=== PATIENT | female | born 1990 | race Caucasian/White ===

== ENCOUNTER → 2016-05-21 | Outpatient (CLI) | payer OTHER ==
[2016-05-21 16:42] LABS: HEMATOCRIT 40.8 % (37.0-47.0); MEAN CORPUSCULAR HEMOGLOBIN 30.2 PG (27-31); MEAN CORPUSCULAR HGB CONC 34.3 g/dL (33-37); MEAN CORPUSCULAR VOLUME 88.1 FL (81-99); MEAN PLATELET VOLUME 10.2 FL (7.4-12.2); RED BLOOD COUNT 4.63 10^6/uL (4.20-5.40)
[2016-05-21 16:58] LABS: BLOOD UREA NITROGEN 15 mg/dL (7-22); BUN/CREATININE RATIO 21.42 (6-20); CALCIUM 9.6 mg/dL (8.7-10.7); EST GLOMERULAR FILTRATION > 60 (>60 ml/min/1.73m(2)); SERUM ALBUMIN 4.3 g/dL (3.5-4.8)
[2016-05-21 17:16] LABS: FREE T4 (FREE THYROXINE) 0.97 ng/dL (0.93-1.71)
== END ==
LOC: MOB LAB 15:01
PROVIDERS: ATTEND Nurse Practitioner Family
DX: R51 Headache (principal); F17.210 Nicotine dependence, cigarettes, uncomplicated
CPT/HCPCS: 80053; 82607; 82728; 83540; 83550; 84439; 84443; 85027

== ENCOUNTER → 2016-05-27 | Outpatient (CLI) | payer OTHER ==
--- NOTE | 2016-05-28 09:11 | DI ---
MRI BRAIN SCAN WITHOUT AND WITH IV CONTRAST, 05/27/2016 2:31 PM: Clinical History: Acute non-intractable headache. Previous Exam: None at this facility. Sequences: Axial and sagittal T1 pre contrast and axial and coronal post contrast; axial T2 and FLAIR . Diffusion weighted images with ADC mapping are also performed. 12 mL of ProHance (279.3 mg/mL) was injected IV. The 4th, 3rd, and lateral ventricles are of normal size, shape, position, and contour for this patien t's age. There are no focal areas of abnormally increased or decreased signal intensity. There are no abnormally enhancing lesions. Both cerebellar tonsils are right at the level of foramen magnum but d o not descend below the foramen magnum. Diffusion weighted imaging with ADC mapping is normal. There are no extracerebral mantels or shift of the midline structures. The paranasal sinuses are normal. Readin. Normal pre-and postcontrast MRI brain scan. 2. Diffusion weighted imaging with ADC mapping is normal.
== END ==
LOC: MRI 14:27
PROVIDERS: ATTEND Nurse Practitioner Family
DX: R51 Headache (principal)
CPT/HCPCS: 70553

== ENCOUNTER → 2016-06-23 | Outpatient (CLI) | payer OTHER ==
--- NOTE | 2016-06-23 21:21 | DI ---
XR C-SPINE COMPLETE MIN 4VW,06/23/2016 2:58 PM: Clinical History: Headache Previous Exam: None at this facility. Findings: AP, lateral, oblique and odontoid views are obtained of the cervical spine, and demonstrate anatomic alignment without fractures. The prevertebral soft tissues are unremarkable. Vertebral body height is preserved. Intervertebral disc height is also preserved. The lung apices are clear. Impression: Normal cervical spine.
== END ==
LOC: MOB RAD 15:05
PROVIDERS: ATTEND Nurse Practitioner Family
DX: R51 Headache (principal); M54.2 Cervicalgia
CPT/HCPCS: 72050

== ENCOUNTER → 2016-08-05 | Outpatient (CLI) | payer OTHER ==
--- NOTE | 2016-08-06 09:19 | DI ---
US PELVIC LIMITED (NON-OB),08/05/2016 4:45 PM: Clinical History: Pelvic pain Previous Exam: Early OB ultrasound from 2008 Findings: Multiple transabdominal grayscale and color Doppler sonographic images are obtained through the pelvi s demonstrating a normal-appearing uterus measuring 7.8 x 3.7 x 5.4 cm with an endometrial stripe killian suring 7 mm. There is no free fluid. The urinary bladder is unremarkable. Right ovary measures 2.6 x 1.8 x 2.8 cm and the left ovary measures 2.7 x 2.3 x 1.6 cm. There is norm al Doppler flow within both ovaries. Impression: Normal pelvic ultrasound.
== END ==
LOC: US 16:44
PROVIDERS: ATTEND Nurse Practitioner Family
DX: R10.2 Pelvic and perineal pain (principal); N73.0 Acute parametritis and pelvic cellulitis; N92.6 Irregular menstruation, unspecified; N94.9 Unspecified condition associated with female genital organs and menstrual cycle; F17.200 Nicotine dependence, unspecified, uncomplicated
CPT/HCPCS: 76857

== ENCOUNTER 2017-03-30 14:14 | Inpatient (IN) ==
[2017-03-30] MEDS ORDERED: Sodium Chloride 0.9% 1,000 ML PRIMARY IV ONE (15:05)
[2017-03-30 16:38] LABS: BILIRUBIN,URINE NEGATIVE (NEG); CLARITY,URINE Slightly Cloudy (CLEAR); COLOR,URINE YELLOW; GLUCOSE, URINE (UA) NEGATIVE (NEG); OCCULT BLOOD,URINE LARGE (NEG); PROTEIN,URINE 30 mg/dl (NEG); UROBILINOGEN,URINE 0.2 mg/dL (0.2)
[2017-03-30 16:42] LABS: BACTERIA,URINE FEW; SQUAMOUS EPITHELIAL CELL,UR MODERATE; URINE SAMPLE TYPE CLEAN CATCH URINE; WBC,URINE 0-1
[2017-03-30 16:49] LABS: AMPHETAMINE SCREEN NEGATIVE (NEG); CANNABINOID SCREEN,URINE NEGATIVE (NEG); COCAINE SCREEN NEGATIVE (NEG); METHADONE URINE SCREEN NEGATIVE (NEG); METHAMPHETAMINES SCREEN,URINE NEGATIVE (NEG); OPIATE SCREEN,URINE NEGATIVE (NEG); URINE SAMPLE TYPE CLEAN CATCH URINE
[2017-03-30] MEDS ORDERED: LIDOCAINE W/ SODIUM BICARB 0.5 ML SYR SUBD PRN (16:51)
[2017-03-30] MEDS ORDERED: Ondansetron ODT Tab 4 MG TAB PO PRN (16:51)
[2017-03-30] MEDS ORDERED: ONDANSETRON 4 MG/2 ML VIAL IVP PRN (16:51)
[2017-03-30] MEDS ORDERED: CALCIUM CARBONATE 500 MG (TUMS) CHEWABLE TABLET PO PRN (16:51)
[2017-03-30] MEDS ORDERED: NORMAL SALINE 10 ML SYRINGE FLUSH IVP PRN (16:51)
[2017-03-30] MEDS ORDERED: ACETAMINOPHEN 325 MG TABLET PO PRN (16:51)
[2017-03-30] MEDS ORDERED: BETAMET ACET/BETAMET NA PH 6 MG/1 ML - 5 ML IM SCH (17:00)
--- NOTE | 2017-03-30 17:04 | OB.PROGRES ---
Interval History: The patient is a 26-year-old at 33-4/7 weeks who presented to labor and delivery this afternoon after awakening from a nap and having dark blood from her vagina when she voided. The patient was not sure if the blood came from her urine or from her vagina. The patient has had intermittent left lower quadrant pain for which she was seen last week and had a normal OB and pelvic ultrasound with normal left ovary. The patient has an anterior placenta without evidence of abruption. In labor and delivery today, the patient was noted to have dark blood in her urine specimen and this was thought to be a midstream clean catch. The patient had an ultrasound of her ureters and kidneys which showed mild ureteral dilation but no stone noted and good ureteral jets noted bilaterally. Patient states that she does not have cramping pain. She does have some lower back discomfort which she has had for a few weeks. The patient states that she has not been active recently since it was suggested that she take it easy. She has not even lifted her son. The patient has not been sexually active recently. Again, the patient awoke from her nap and was noted to have dark blood when she went to the restroom to avoid. Below is my initial history when I saw the patient at the beginning of this . The patient does have a history of a vaginal delivery and then a section for a presumed partial placental abruption at 39+ weeks. The patient is Rh+. The patient is a 26-year-old at 13-5/7 weeks by an 11+ week ultrasound who presents for transfer of care for her OB care. The patient was seen in the emergency room a few days ago for bleeding. The bleeding is much improved and only has a slight discharge 1 white currently. An ultrasound was completed on 09 November and did show an IUP with cardiac activity. The patient does not have any pain. Patient has a history of a last which I performed for presumed partial abruption at 39+ weeks. That baby is doing well. Prior to that, patient had a vaginal delivery. Past medical history noncontributory Past surgical history significant for a D&C and then a perforation noted and then a laparoscopic repair of the perforation. Also the No known drug allergies Tobacco 5-7 cigarettes per day. Patient does desire to quit by the end of her , no alcohol, no drugs Menarche age 13, no abnormal Pap smear history with the last Pap smear last year And no drugs OB history vaginal delivery x1 and then a section for bleeding. Objective - Cervical Exam Cervical Exam: Speculum exam showed some dark blood at the cervix. Dark blood in the vagina. Cervix was visualized and not friable. Digital cervical exam shows the cervix was a fingertip and thick. Moderate consistency [place]: Rare contractions. Questionable mild occasional irritability. No regular contractions. Heart Rate Interpretation Category: Category I - Vital Signs Last Taken Vital Signs: Vital Signs - Last Taken Temperature 97.5 F 03/30/17 14:21 Pulse Rate 100 03/30/17 14:21 Respiratory Rate 18 03/30/17 14:21 Blood Pressure 127/77 03/30/17 14:50 Pulse Ox 99 03/30/17 14:21 - Additional Details Additional Details: Lungs clear to auscultation Heart regular rate and rhythm Abdomen was gravid and soft and nontender without guarding or rebound. Slight tenderness left lower quadrant. Speculum exam discussed above. Reflexes were 2+ bilaterally Radiology performed an ultrasound. Anterior placenta, baby in cephalic presentation. HIGINIO was 15+ centimeters. No evidence of placental abruption by ultrasound. Good movement and flexion and extension of fetus. Nonstress test was category 1 and reactive. Ultrasound of the patient's kidneys and ureters did not show significant pathology. Mild ureteral dilation. No stone. Ureteral jets noted bilaterally with good flow into the bladder from the ureters. Formal report is pending. Assessment and Plan - Assessment / Plan Additional Assessment/Plan Details: Assessment: IUP 33-4/7 weeks with vaginal bleeding-dark blood. Initially it was thought that the patient had blood in her urine with a midstream clean catch but then it was discovered that the patient did not complete a midstream clean catch. UA with micro-is pending. The patient does have an anterior placenta and may have a partial abruption. Patient is Rh+. Patient has been seen in labor and delivery a couple different times. She had pain after shoveling Snow. Last week she had left lower quadrant discomfort and ultrasound was normal and exam was normal. Patient was sent home with precautions. Plan: I will admit the patient for observation Betamethasone 12 mg IM today and repeat in 24 hours IV fluids at 125 mL per hour UA with micro-pending. Culture if indicated. Clear liquids initially. External monitoring If the patient has more bleeding, I would consider transferring the patient to [facility] since we do not have a NICU here. Currently transfer is not possible secondary to the weather-it has been snowing here all day and we have about 12 inches of Snow. Of note, the fetus looks good and the patient's cervix is a fingertip and currently she is not actively bleeding. I will check a CBC, CMP and a type and screen. SCDs Close observation.
[2017-03-30] MEDS: Lactated Ringers 1,000 ML PRIMARY IV SCH (17:07)
--- NOTE | 2017-03-30 17:26 | OB.PROGRES ---
Objective - Vital Signs Last Taken Vital Signs: Vital Signs - Last Taken Temperature 97.5 F 03/30/17 14:21 Pulse Rate 100 03/30/17 14:21 Respiratory Rate 18 03/30/17 14:21 Blood Pressure 127/77 03/30/17 14:50 Pulse Ox 99 03/30/17 14:21 Assessment and Plan - Assessment / Plan Additional Assessment/Plan Details: I just spoke with the patient now. She is having some abdominal discomfort intermittently. There have perhaps been some inverted contractions on the monitor and the toco will be adjusted. I discussed the betamethasone to help improve lung maturity but also help decrease the rate of interventricular hemorrhage and decrease her rate of necrotizing enterocolitis. The patient and I did discuss that sometimes patient 's have a hard time sleeping after they received betamethasone. Patient expressed understanding and agreed. The patient also questioned if some of her abdominal discomfort is because she is hungry and only had cereal for breakfast. Currently, I would like to have the patient on clear liquids but if she is doing better later, she may have regular diet. We also discussed transferred to [facility] if her symptoms worsen or if her bleeding continues. Patient expressed understanding with that plan. If the patient does have contractions on the monitor, I could try nifedipine 10 mg 3 doses for a load then 10 mg every 4-6 hours. Of course, if the patient does have a partial placental abruption, sometimes the nifedipine will not help with this. The patient expressed understanding with the above plan.
[2017-03-30 18:23] LABS: BASOPHILS # (AUTO) 0.02 10*3/UL; BASOPHILS % (AUTO) 0.2 % (0-1); Hematocrit [HCT] 36.1 % (37.0-47.0); Hemoglobin [HGB] 12.6 g/dL (12.0-16.0); LYMPHOCYTES # (AUTO) 2.23 10*3/uL; MEAN CORPUSCULAR HEMOGLOBIN 32.2 PG (27-31); MEAN CORPUSCULAR HGB CONC 34.9 g/dL (33-37); MEAN CORPUSCULAR VOLUME 92.3 FL (81-99); MEAN PLATELET VOLUME 9.2 FL (7.4-12.2); MONOCYTES % (AUTO) 7.2 % (5-15); NEUTROPHILS # (AUTO) 6.52 10*3/UL; NEUTROPHILS % (AUTO) 67.4 % (50-80); RED BLOOD COUNT 3.91 10^6/uL (4.20-5.40)
[2017-03-30 18:25] LABS: PLATELET MORPHOLOGY COMMENT NORMAL MORPHOLOGY (NORM); RBC MORPHOLOGY COMMENT NORMAL MORPHOLOGY (NORM); WBC MORPHOLOGY COMMENT NORMAL MORPHOLOGY (NORM)
[2017-03-30 18:33] LABS: BLOOD UREA NITROGEN 5 mg/dL (7-22); SERUM ALBUMIN 3.3 g/dL (3.5-4.8)
--- NOTE | 2017-03-30 20:13 | DI ---
LIMITED OBSTETRICAL ULTRASOUND, 03/30/2017 2:37 PM Clinical History: Vaginal bleeding. Previous Exam: 03/24/2017. EDC based on early OB US: [place] . There is a single live IUP currently in vertex presentation. Amnionic fluid content is normal for thi s stage of . Amniotic fluid index is 15.9 cm. activity is observed as follows: cardiac and extremity. The placenta is anterior corpus and Grade 2. There is no evidence of an abruption. Th e uterine wall at the attachment of the placenta appears intact and no lacunae are visualized. heart rate is 120 beats/minute and regular. Readin. Single live fetus with vertex presentation and normal amniotic fluid content. Amniotic fluid inde x is 15.9 cm. 2. The placenta is anterior corpus and grade 2. There is no evidence of an abruption or marginal pre via or placenta previa. No lacunae or abnormal vascularity is noted in the placenta.
--- NOTE | 2017-03-30 20:19 | DI ---
BILATERAL RENAL ULTRASOUND, 03/30/2017 2:39 PM: Clinical History: Blood in the urine. Back pain. The patient is in her third trimester of . Previous Exam: None at this facility. Scans are performed through both kidneys in multiple projections. The right kidney measures 120 mm, a nd the left kidney measures 110 mm. There is no solid or cystic mass in either kidney. Mild right hyd ronephrosis and hydroureter are present consistent with this stage of . There is no left hyd ronephrosis or hydroureter. Perfusion to both kidneys is symmetric and normal. The bladder is normal. Bilateral ureteral jets are visualized. There is an estimated prevoid bladder volume of 200-210 mL. No post void residual volume is recorded. Readin. There is mild right hydronephrosis and hydroureter consistent with the stage of . There is no left hydronephrosis or hydroureter. No renal calculi are seen. 2. The bladder is normal, and bilateral ureteral jets are visualized.
[2017-03-30] MEDS ORDERED: NIFEdipine 10 MG CAPSULE PO SCH (20:30)
[2017-03-30] MEDS ORDERED: Magnesium Sulfate 4gm (Premix) 4 GM/100 ML BAG IV ONE (20:59)
[2017-03-30] MEDS ORDERED: CALCIUM GLUCONATE 100 MG/1 ML - 10 ML IVP PRN (20:59)
[2017-03-30] MEDS ORDERED: Magnesium Sulfate 2gm (Premix) 2 GM/50 ML BAG IV ONE (20:59)
[2017-03-30] MEDS ORDERED: Magnesium Sulfate (Premix) 20 GM/500 ML BAG IV SCH (21:00)
--- NOTE | 2017-03-30 21:57 | OB.PROGRES ---
Interval History: The patient has been off to the restroom a couple times and has noticed some dark blood in the toilet. 3 times now with the first being the most blood and she just went to the restroom and had a little bit of dark blood noted. The patient states that her cramping is still present but perhaps slightly improved. The patient does not have increasing abdominal pain. Objective - Cervical Exam Cervical Exam: Deferred currently [place]: Irregular contractions every 4-7 minutes. Heart Rate Interpretation Category: Category I - Labs CBC and BMP: 03/30/17 18:15 03/30/17 18:15 - Vital Signs Last Taken Vital Signs: Vital Signs - Last Taken Temperature 98.5 F 03/30/17 19:14 Pulse Rate 100 03/30/17 14:21 Respiratory Rate 18 03/30/17 14:21 Blood Pressure 127/77 03/30/17 14:50 Pulse Ox 99 03/30/17 14:21 - Additional Details Additional Details: The patient's abdomen is gravid and soft without guarding or rebound. Minimal tenderness inferiorly. Assessment and Plan - Assessment / Plan Additional Assessment/Plan Details: Assessment: IUP 33-4/7 weeks with continued vaginal bleeding with dark blood per vagina. No bright red bleeding and no heavy bleeding. The patient continues to have some abdominal cramping and contractions finally did greens picker on the toco with adjustment of the toco. Presumed partial placental abruption. heart rate category 1 tracing. The patient is Rh+. Plan: With the continued dark blood per vagina and cramping with contractions, magnesium sulfate will be started to attempt to decrease contractions to allow for steroid window. A Davis catheter will also be placed. Patient received the first dose of betamethasone early this evening. Additionally, it is best to transport the patient to [facility] in [facility] since we do not have a NICU here. I spoke with Dr. Luna, maternal medicine, and he accepted the patient. Secondary to the weather here but also in [place], [place] air transport is not possible. The current plan is to transport the patient by ambulance starting at 0700 hrs. in the morning. Pediatrics here at [facility] is aware of this patient being admitted in case we do have to do an urgent or stat section for increased bleeding. Of course, hopefully this will not occur. The patient is aware that this may be a possibility and then we would have to transport the as soon as we could. Of minor note, I will also start the patient on Pepcid.
[2017-03-30] MEDS ORDERED: FAMOTIDINE 20 MG TABLET PO SCH (21:58)
[2017-03-30] MEDS ORDERED: LIDOCAINE HCL 2 % 10 ML JELLY URO-JECT TOPICAL PRN (22:02)
--- NOTE | 2017-03-30 22:08 | OB.PROGRES ---
Objective - Labs CBC and BMP: 03/30/17 18:15 03/30/17 18:15 - Vital Signs Last Taken Vital Signs: Vital Signs - Last Taken Temperature 98.5 F 03/30/17 19:14 Pulse Rate 100 03/30/17 14:21 Respiratory Rate 18 03/30/17 14:21 Blood Pressure 127/77 03/30/17 14:50 Pulse Ox 99 03/30/17 14:21 Assessment and Plan - Assessment / Plan Additional Assessment/Plan Details: The nurse and I discussed the labs but I did not mention the labs in my note. The patient's H&H was 12 and 36 and the platelets were normal. White count was 9.6 prior to the betamethasone. Creatinine was 0.4. Liver function tests were normal. Urinalysis showed moderate epithelial cells and numerous red blood cells and 0- 1 white blood cell. A culture was set. There were ketones in the urine and some protein noted. Protein may be secondary to the blood. The patient had not eaten today except for a bowl of cereal this morning. The patient has been on clear liquids including clear liquids with glucose. A GBS culture was completed.
[2017-03-30] MEDS ORDERED: Metoclopramide Inj 10 MG/2 ML VIAL ONE (22:30)
[2017-03-30] MEDS ORDERED: FAMOTIDINE 20 MG/2 ML VIAL IVP ONE (22:30)
[2017-03-30] MEDS ORDERED: Sodium Chloride 0.9% 100 ML IV ONE (22:31)
[2017-03-30] MEDS ORDERED: LIDOCAINE MPF 2% - 5 ML (20 MG/1 ML) ONE (22:34)
[2017-03-30] MEDS ORDERED: PROPOFOL 10 MG/1 ML (200 MG/20 ML) VIAL IV ONE ×2 (22:34→23:43)
[2017-03-30] MEDS ORDERED: fentaNYL Inj 250 MCG/5 ML VIAL ONE (22:34)
[2017-03-30] MEDS ORDERED: MIDAZOLAM 5 MG/1 ML ONE (22:34)
[2017-03-30] MEDS ORDERED: OXYTOCIN 10 UNIT/1 ML ONE (22:43)
[2017-03-30] MEDS ORDERED: Lactated Ringers 1,000 ML PRIMARY IV ONE ×3 (22:44→23:46)
[2017-03-30] MEDS ORDERED: HYDROmorphone 2 MG/1 ML ONE (23:03)
[2017-03-30] MEDS ORDERED: AZITHROMYCIN 500 MG VIAL IV ONE (23:06)
[2017-03-30] MEDS ORDERED: MISOPROSTOL 200 MCG TABLET ONE (23:11)
[2017-03-30] MEDS ORDERED: SUCCINYLCHOLINE CHLORIDE 20 MG/1 ML - 10 ML IVP ONE (23:30)
[2017-03-30] MEDS ORDERED: METHYLERGONOVINE MALEATE 0.2 MG/1 ML VIAL IM ONE (23:30)
[2017-03-30] MEDS ORDERED: Oxytocin 20 Units + LR 20 UNIT/1,000 ML BAG IV ONE (23:45)
[2017-03-30] MEDS ORDERED: ONDANSETRON 4 MG/2 ML VIAL ONE (23:46)
[2017-03-31] MEDS ORDERED: ONDANSETRON 4 MG/2 ML VIAL IVP PRN ×2 (00:28→00:48)
[2017-03-31] MEDS ORDERED: diphenhydrAMINE 25 MG CAPSULE PO PRN (00:28)
[2017-03-31] MEDS ORDERED: Nalbuphine Inj 20 MG/ML Ampule IVP PRN (00:28)
[2017-03-31] MEDS ORDERED: DIPH,PERTUSS,TET(ADACEL) VAC/PF 0.5 ML (Tdap) IM ONE (00:28)
[2017-03-31] MEDS ORDERED: NORMAL SALINE 10 ML SYRINGE FLUSH IVP PRN ×2 (00:28→00:48)
[2017-03-31] MEDS ORDERED: LANOLIN HPA 40 GM TUBE TOPICAL PRN (00:28)
[2017-03-31] MEDS ORDERED: Naloxone Inj 0.01 MG, Sodium Chloride 0.9% vial 1 ML IVP PRN ×2 (00:28)
[2017-03-31] MEDS ORDERED: diphenhydrAMINE 50 MG/1 ML VIAL IV PRN (00:28)
[2017-03-31] MEDS ORDERED: Famotidine Inj 20 MG in Normal Saline Flush 10 ML IVP PRN (00:28)
[2017-03-31] MEDS ORDERED: NALOXONE 0.4 MG/1 ML VIAL IVP PRN ×2 (00:28→00:33)
[2017-03-31] MEDS ORDERED: CALCIUM CARBONATE 500 MG (TUMS) CHEWABLE TABLET PO PRN (00:28)
[2017-03-31] MEDS ORDERED: KETOROLAC 15 MG/1 ML VIAL IVP SCH (00:30)
[2017-03-31] MEDS ORDERED: Oxytocin 20 Units + LR 20 UNIT/1,000 ML BAG IV SCH (00:30)
[2017-03-31] MEDS ORDERED: HYDROmorphone/PF/PCA 9 MG/30 ML IV SCH (00:45)
--- NOTE | 2017-03-31 00:46 | OB.OP.NOTE ---
Operative Report Surgeon: Babar Senior Ux Developer: Ld Ross MD Anesthesia Type: General Anesthesia Provider: Lee Cristobal CRNA Surgery Date: 03/30/17 Preoperative Diagnosis: IUP 33-4/7 weeks. Vaginal bleeding; possible partial placental abruption. Patient with severe abdominal pain-potential placental abruption. Nonreassuring status with nonreassuring heart rate Postoperative Diagnosis: Same. Nuchal cord 1 Procedure: Repeat low transverse section Estimated Blood Loss (mL): 700 Fluids: 1700 mL of LR including 20 milliunits of Pitocin in 1 L of LR. Mefoxin 2 g before surgery. Azithromycin 500 mg IV after cord clamp. Methergine-0.2 mg IM for uterine atony. Cytotec 1000 g per rectum at the completion of the surgery Complications: None apparent. There was nuchal cord 1 Findings at Surgery: Male infant with Apgars of 2 and 7. Blood gas showed a pH of 7.35, PCO2 of 38, HCO3 of 21, base excess of -5 Weight was 4 lbs. 10 oz. Indications for the Procedure: The patient is a 26-year-old at 33-4/7 weeks who presented to labor and delivery the afternoon of 03/30/2017 with complaint of vaginal bleeding. The patient had taken a nap and then went to the restroom to void and had dark blood per vagina or with voiding. The patient also noted some low back pain and also some abdominal cramping. The patient presented to labor and delivery and initially the nurse thought that the patient's clean catch urine had bright red blood and we are not sure if the patient had renal lithiasis. The patient clarified that it was not a clean catch and a repeat midstream clean catch did not have bright red blood but did have greater than 20 red blood cells per high- power field. An ultrasound of the patient's kidneys and ureters were essentially normal except for mild ureteral dilation. Good ureteral jets flow bilaterally into the bladder. An ultrasound of baby and patient's gravid uterus showed an anterior placenta without evidence of abruption. HIGINIO was 15+ centimeters. Cervical check was fingertip and thick with no bright red bleeding on exam. The patient was admitted for observation and received IM betamethasone for lung maturity. Initially, category 1 heart rate tracing and no contractions noted. Readjustment of the toco did show some possible inverted contractions and then readjustment of the toco just after shift change did show contractions every 4- 7 minutes. The patient's abdominal pain was not directly related to the contraction pattern. The patient also went to the restroom 3 different times and had some blood per her vagina that ended up in the toilet bowl. This actually improved by the third visit to the restroom but there was still slight amount of dark blood. With the above information, it was decided that we would transfer the patient to a higher level of care but secondary to the significant weather, transport could not be arranged until early in the morning by ambulance. The plan was to transfer the patient to [facility] where a NICU was available. I came in to see the patient to discuss the above and to discuss starting magnesium sulfate with a 4 g bolus and then 2 g per hour to determine if the contraction pattern would improve and we can get through the steroid window. The patient's abdomen was soft without guarding or rebound. I did call the heart rate tracing category 1-which was earlier-but there was increased variability and review of the heart rate strip. The nurse had pointed this out during a phone call. After speaking with the patient and discussing the plan with the patient, plans were made for transfer in the morning and the patient agreed. As I was starting to get ready to leave labor and delivery, I was called into the patient's room by the nurse. Contractions were regular every 2-3 minutes compared to every 4-7 minutes that they were 1-2 hours earlier. The heart rate was down into the 70s and perhaps even lower. The nurse at one time thought the heart rate may be in the 40s. The patient was not hypotensive. With auscultation with the Doppler, the heart rate was initially lower and then increased to the 90s and then the low 100s. This was accomplished with position change of the patient. At the same time, the patient was complaining of severe abdominal pain. On exam, the patient's abdomen was firm and the patient expressed that it was tender to exam. The patient appeared to be in extreme pain. Continue to auscultation of the heart rate showed that the heart rate was in the high 90s and low 100s up to 112. With the patient' s history that I described above, the experienced nurse had are ready requested the OR crew come in and I readily agreed. I spoke with the patient about a possible placental abruption with the significant change in the heart rate and the fact that she had vaginal bleeding upon presentation earlier in the day. It should be noted that the patient did not have increased vaginal bleeding at this time although she had significant abdominal pain and appeared to be in significant distress. The risks, benefits, alternatives and indication of a section were discussed with the patient in detail and consent forms were signed for the section and for possible blood transfusion. Additionally, the patient had previously discussed desiring a tubal ligation but we discussed at this time that perhaps we could do the tubal ligation after 6 weeks since we were not sure of the outcome for her . The patient thought about this and agreed that she would hold off and not get a tubal ligation currently. The patient was brought to the operating room with the heart rate monitor. In the operating room while the operating crew is getting ready for the section, heart rate was in the low 100s to 110 to 115. At this point with the patient's severe abdominal pain and the contractions that were every 2-3 minutes and this significant change in heart rate, I thought it best to continue with the current plan to perform the repeat section. The patient agreed. Description of Procedure: Being that this was an urgent/stat section, patient was prepped and draped sterilely. When the OR crew was ready, anesthesia had the patient undergo general endotracheal anesthesia in an uncomplicated fashion. When anesthesia inform me that I could operate, a Pfannenstiel skin incision was made over the old incision site. I worked my way down to the fascia using the knife blade initially and then the Bovie. The fascia was nicked in the midline and then extended laterally bilaterally using the Bovie and the Yankauer to retract. Cokers were placed on the superior fascia either side of the midline and the fascia was dissected off of the muscle bluntly and with the Bovie. The same was done inferiorly. There was a small midline opening of the peritoneum into the abdominal cavity. This was extended digitally. Then the Ish retractor was placed intra-abdominally and then a low transverse uterine incision was made and extended and I placed my hand into the abdomen along the baby's head which was in the cephalic presentation and then delivered the baby' s head and then shoulders and then body. The mouth and nose were bulb suctioned of clear mucus. The baby had a lusty cry. Delayed cord clamping for 30 seconds was allowed for. The cord was then clamped and cut. The baby was handed off to the waiting nurses. The baby was brought over to the warmer. A section of cord was obtained for cord gases and then cord blood was obtained. The fundus of the uterus was gently massaged and the placenta was gently removed from the uterus and membranes were teased out. The uterus actually inverted a slight amount with gentle traction of the placenta while removing the placenta. The placenta appeared to be intact and membranes were removed. The uterus was exteriorized and was then noted to be boggy initially and a lap sponge was used to clean out the intrauterine contents and this was then completed with the second lap sponge. With gentle massage of the uterus, the uterus started to contract down. There was a significant venous bleeder or venous sinus on the patient's right side of the incision inferiorly and this side of the incision was closed with 0 Vicryl suture in a running locking fashion towards the left side of the incision. A [id number] suture was used in the midline secondary to a bleeder and this allowed for hemostasis. Another 0 Vicryl suture was then used to imbricate the incision starting on the patient's left side and going towards the patient's right side. There appeared to be good hemostasis of the uterine incision. The uterus would firm up and then relax some. I thought that the magnesium sulfate may be an etiology for the uterine atony. The magnesium sulfate was stopped prior to the section since we determined that a would have to be completed. Methergine 0.2 mg IM was administered along with the Pitocin that was being administered. This did allow the uterus to contract more. Also, I had the nurse look under the drapes to ensure that the patient was not bleeding vaginally secondary to the intermittent uterine atony. The patient was not actively bleeding. The uterus was examined and there was a small 5 mm fibroid in the posterior wall of the uterus. The ovaries and tubes appeared normal. It should be noted that there did not appear to be a uterine dehiscence secondary to the history of 1 in the past. This was determined upon entrance into the abdominal cavity and examination of the uterus. The lower uterine segment was intact. At this time the posterior lower uterine segment was examined and appeared to be intact. With the uterine incision closed and a second layer imbricated, there was good hemostasis of the uterine incision. Posterior to the uterus was irrigated and then suctioned. The uterus then was placed back in to the abdomen. The uterine incision was then examined again and appeared to be hemostatic. There was one area that was bovied. Excellent hemostasis. The patient's right gutter was then irrigated and suctioned and then the patient's left gutter was irrigated and suctioned. There appeared to be good hemostasis and no bleeders noted. The repaired uterine incision was then examined again and appeared to be hemostatic. At this time it was decided to close the abdomen. 3-0 Vicryl suture was used to close the peritoneum. Looped 0 PDS was then used to close the fascia starting on the patient's left side and working to the right side. The 0 PDS suture was then tied in the usual fashion. The fascia appeared intact. The subcutaneous tissue was then irrigated. It was then reapproximated with 3- 0 Vicryl suture. There appeared to be good hemostasis. The subcuticular area was then undermined a little bit using the Bovie and then 3-0 Stratafix suture was used to complete a subcuticular closure. Steri-Strips were then applied after skin prep was used. At this time, an ABD that was used to cover the incision and then paper tape was used. The uterus was expressed of all clot. There was small amount of dark blood expressed. No significant clots. Cytotec one-thousand micrograms per rectum was placed. An x-ray of the patient's abdomen was then performed secondary to the stat procedure and not counting instruments and lap sponges. The x-ray did not reveal any retained lap sponges or instruments. The ABD pad was then removed. A Silverlon dressing was applied over the incision and then the ABD pad was placed again. The patient was then awakened from her general endotracheal anesthesia and was brought to the PACU in stable condition. Plan: The patient will be observed closely. The baby will most likely be transferred to a intensive care unit for continued care.
[2017-03-31] MEDS ORDERED: fentaNYL Inj 100 MCG/2 ML VIAL IVP PRN (00:48)
[2017-03-31] MEDS ORDERED: HYDROmorphone 2 MG/1 ML IVP PRN (00:48)
--- NOTE | 2017-03-31 00:52 | CRNA.PROGR ---
Anesthesia Time - - Start date: 03/30/17 End date: 03/31/17 (Note start prior to midnight) - Procedure/Recovery Time Anesthesia : Time In: 22:35 Anesthesia : Time Out: 00:20 Anesthesia : Total Time: 105 - Total Anesthesia Time Total Anesthesia Time (minutes): 105 - Other Weight: 68.039 kg Height: 5 ft 4 in Body Mass Index (BMI): 25.7 Physical Status: P2 Anesthesia Type: General Anesthesia : ET (Stat CSection NRFHT)
--- NOTE | 2017-03-31 00:53 | CRNA.PROGR ---
Anesthesia Recovery Phase I - Post Anesthesia Evaluation Patient's Condition on Arrival in Phase I: Stable Pain Level: 5
[2017-03-31] MEDS ORDERED: KETOROLAC 30 MG/1 ML VIAL ONE (01:21)
[2017-03-31] MEDS ORDERED: HYDROmorphone 2 MG/1 ML ONE (01:30)
[2017-03-31] MEDS ORDERED: KETOROLAC 30 MG/1 ML VIAL IVP ONE (01:40)
[2017-03-31] MEDS: oxyCODONE-ACETAMINOPHEN 5-325 TAB PO PRN ×5 (03:48→20:14)
[2017-03-31] MEDS ORDERED: Sodium Chloride 0.9% 250 ML IV ONE (05:46)
[2017-03-31] MEDS: Lactated Ringers 1,000 ML PRIMARY IV SCH (06:08)
[2017-03-31] MEDS: KETOROLAC 15 MG/1 ML VIAL IVP SCH ×3 (08:21→20:15)
[2017-03-31] MEDS: D5-LR 1,000 ML PRIMARY IV SCH ×2 (08:34→11:44)
--- NOTE | 2017-03-31 08:53 | DI ---
KUB, 03/30/2017 11:32 PM: Clinical History: Search for retained sponge or needle. Stat procedure with no preoperative counts obtained. Previous Exam: 08/05/2015. There are no soft tissue or bony abnormalities. Bowel gas pattern, psoas margins, and flank stripes a re normal. There is no free air or fluid. There are no abnormal radiodensities. A catheter is present in the bladder. Reading: Normal KUB exam. There is no evidence of retained surgical needle or sponge.
[2017-03-31] MEDS ORDERED: Prenatal Multivitamin Tab 1 TAB TAB PO SCH (09:00)
[2017-03-31] MEDS: Prenatal Multivitamin Tab 1 TAB TAB PO SCH (09:50)
[2017-03-31] MEDS: DOCUSATE 100 MG CAPSULE PO SCH ×2 (09:50→20:16)
--- NOTE | 2017-03-31 10:10 | CRNA.PROGR ---
Anesthesia Note - Progress Notes Anesthesia Progress Note: Sitting up in bed talking with spouse. Discussed anesthetic course. She has no questions regarding her anesthesia. Vital Signs (24 hrs) Temp Pulse Pulse Pulse Resp Resp BP 03/31/17 09:00 97.6 F 64 16 03/31/17 08:59 70 03/31/17 08:49 16 03/31/17 07:00 16 03/31/17 05:00 97.4 F 77 77 18 114/63 03/31/17 04:00 97.4 F 78 18 123/74 03/31/17 03:00 97 F 68 18 120/76 03/31/17 02:15 97.4 F 73 18 125/80 03/31/17 01:55 18 03/31/17 01:45 97.8 F 74 18 121/73 03/31/17 01:30 97.8 F 72 14 132/85 03/31/17 01:00 97.8 F 12 L 78 H 127/81 03/31/17 00:55 97.6 F 14 L 58 H 124/71 03/31/17 00:45 97.5 F 76 15 119/69 03/31/17 00:35 97.5 F 81 18 105/71 03/31/17 00:28 97.3 F 90 16 107/83 03/31/17 00:23 97.3 F 100 16 99/70 03/31/17 00:18 97.3 F 100 16 99/70 03/30/17 19:14 98.5 F 03/30/17 14:50 03/30/17 14:21 97.5 F 100 18 BP Pulse Ox 03/31/17 09:00 119/78 99 03/31/17 08:59 03/31/17 08:49 03/31/17 07:00 99 03/31/17 05:00 114/63 98 03/31/17 04:00 99 03/31/17 03:00 99 03/31/17 02:15 98 03/31/17 01:55 99 03/31/17 01:45 99 03/31/17 01:30 98 03/31/17 01:00 98 03/31/17 00:55 100 03/31/17 00:45 99 03/31/17 00:35 95 03/31/17 00:28 92 03/31/17 00:23 92 03/31/17 00:18 92 03/30/17 19:14 03/30/17 14:50 127/77 03/30/17 14:21 146/85 99 Laboratory Results 03/30/17 03/30/17 03/30/17 Range/Units 16:30 16:30 16:30 WBC (4.8-10.8) 10^3/uL RBC (4.20-5.40) 10^6/uL Hgb (12.0-16.0) g/dL Hct (37.0-47.0) % MCV (81-99) FL MCH (27-31) PG MCHC (33-37) g/dL RDW Std Deviation (39-50) fL RDW Coeff of Dain (11.5-14.5) % Plt Count (140-350) 10*3/uL MPV (7.4-12.2) FL Immature Gran % (Auto) (0-5) % Neut % (Auto) (50-80) % Lymph % (Auto) (10-50) % Harper % (Auto) (5-15) % Eos % (Auto) (0-8) % Baso % (Auto) (0-1) % Immature Gran # (Auto) 10*3/UL Neut # (Auto) 10*3/UL Lymph # (Auto) 10*3/uL Harper # (Auto) (0.3-0.8) 10*3/UL Eos # (Auto) 10*3/UL Baso # (Auto) 10*3/UL WBC Morphology Comment (NORM) Plt Morphology Comment (NORM) RBC Morph Comment (NORM) Sodium (135-145) meq/L Potassium (3.8-5.2) meq/L Chloride (98-112) meq/L Carbon Dioxide (23-33) meq/L Anion Gap (5-20) BUN (7-22) mg/dL Creatinine (0.50-1.20) mg/dL Estimated GFR (>60 ml/min/1.73m(2)) BUN/Creatinine Ratio (6-20) Glucose (78-110) mg/dL Calculated Osmolality (267-292) mOsm/kg Calcium (8.7-10.7) mg/dL Total Bilirubin (0.3-1.2) mg/dL AST (8-39) IU/L ALT (9-52) IU/L Alkaline Phosphatase (38-126) IU/L Total Protein (6.1-8.0) g/dL Albumin (3.5-4.8) g/dL Globulin (2.50-4.10) g/dL Albumin/Globulin Ratio (1.3-2.0) mg/g Ur Collection Type Clean catch urine Clean catch urine Urine Color Yellow Urine Clarity Slightly cloudy (CLEAR) Urine pH 7.0 (5.0-8.5) Ur Specific [place] 1.010 (1.005-1.030) U Specif Grav (Refrac) 1.010 Urine Protein 30 (NEG) mg/dl Urine Glucose (UA) Negative (NEG) mg/dL Urine Ketones 40 (NEG) Urine Occult Blood Large (NEG) Urine Nitrate Negative (NEG) Urine Bilirubin Negative (NEG) Urine Urobilinogen 0.2 (0.2) mg/dL Ur Leukocyte Esterase Negative Negative (NEG) Urine RBC 15-24 (NONE) /hpf Urine WBC 0-1 (NONE) Ur Squamous Epith Cells Moderate (NONE) Ur Renal Epithelial Cell None (NONE) Urine Crystals None Urine Bacteria Few (NONE) Urine Casts None Urine Mucus None (NONE) Urine Trichomonas None (NONE) Urine Yeast None (NONE) Ur Culture Indicated? Culture set Urine Opiates Screen Negative (NEG) Ur Buprenorphine Negative (NEG) Ur Oxycodone Screen Negative (NEG) Urine Methadone Screen Negative (NEG) Ur Propoxyphene Screen Negative (NEG) Barbiturate Screen Positive H (NEG) U Tricyclic Antidepress Negative (NEG) Phencyclidine Screen Negative (NEG) Amphetamines Screen Negative (NEG) U Methamphetamines Scrn Negative (NEG) Benzodiazepines Screen Negative (NEG) Cocaine Screen Negative (NEG) U Marijuana (THC) Screen Negative (NEG) Blood Type Antibody Screen 03/30/17 03/30/17 03/30/17 Range/Units 18:15 18:15 18:15 WBC 9.69 (4.8-10.8) 10^3/uL RBC 3.91 L (4.20-5.40) 10^6/uL Hgb 12.6 (12.0-16.0) g/dL Hct 36.1 L (37.0-47.0) % MCV 92.3 (81-99) FL MCH 32.2 H (27-31) PG MCHC 34.9 (33-37) g/dL RDW Std Deviation 47.1 (39-50) fL RDW Coeff of Dain 14.3 (11.5-14.5) % Plt Count 210 (140-350) 10*3/uL MPV 9.2 (7.4-12.2) FL Immature Gran % (Auto) 1.2 (0-5) % Neut % (Auto) 67.4 (50-80) % Lymph % (Auto) 23.0 (10-50) % Harper % (Auto) 7.2 (5-15) % Eos % (Auto) 1.0 (0-8) % Baso % (Auto) 0.2 (0-1) % Immature Gran # (Auto) 0.12 10*3/UL Neut # (Auto) 6.52 10*3/UL Lymph # (Auto) 2.23 10*3/uL Harper # (Auto) 0.70 (0.3-0.8) 10*3/UL Eos # (Auto) 0.10 10*3/UL Baso # (Auto) 0.02 10*3/UL WBC Morphology Comment Normal morphology (NORM) Plt Morphology Comment Normal morphology (NORM) RBC Morph Comment Normal morphology (NORM) Sodium 137 (135-145) meq/L Potassium 3.3 L (3.8-5.2) meq/L Chloride 109 (98-112) meq/L Carbon Dioxide 19 L (23-33) meq/L Anion Gap 9 (5-20) BUN 5 L (7-22) mg/dL Creatinine 0.4 L (0.50-1.20) mg/dL Estimated GFR > 60 (>60 ml/min/1.73m(2)) BUN/Creatinine Ratio 12.50 (6-20) Glucose 79 (78-110) mg/dL Calculated Osmolality 279.0 (267-292) mOsm/kg Calcium 8.2 L (8.7-10.7) mg/dL Total Bilirubin 0.2 L D (0.3-1.2) mg/dL AST 17 (8-39) IU/L ALT 30 (9-52) IU/L Alkaline Phosphatase 108 (38-126) IU/L Total Protein 6.0 L (6.1-8.0) g/dL Albumin 3.3 L (3.5-4.8) g/dL Globulin 2.7 (2.50-4.10) g/dL Albumin/Globulin Ratio 1.20 L (1.3-2.0) mg/g Ur Collection Type Urine Color Urine Clarity (CLEAR) Urine pH (5.0-8.5) Ur Specific [place] (1.005-1.030) U Specif Grav (Refrac) Urine Protein (NEG) mg/dl Urine Glucose (UA) (NEG) mg/dL Urine Ketones (NEG) Urine Occult Blood (NEG) Urine Nitrate (NEG) Urine Bilirubin (NEG) Urine Urobilinogen (0.2) mg/dL Ur Leukocyte Esterase (NEG) Urine RBC (NONE) /hpf Urine WBC (NONE) Ur Squamous Epith Cells (NONE) Ur Renal Epithelial Cell (NONE) Urine Crystals Urine Bacteria (NONE) Urine Casts Urine Mucus (NONE) Urine Trichomonas (NONE) Urine Yeast (NONE) Ur Culture Indicated? Urine Opiates Screen (NEG) Ur Buprenorphine (NEG) Ur Oxycodone Screen (NEG) Urine Methadone Screen (NEG) Ur Propoxyphene Screen (NEG) Barbiturate Screen (NEG) U Tricyclic Antidepress (NEG) Phencyclidine Screen (NEG) Amphetamines Screen (NEG) U Methamphetamines Scrn (NEG) Benzodiazepines Screen (NEG) Cocaine Screen (NEG) U Marijuana (THC) Screen (NEG) Blood Type O POSITIVE Antibody Screen Negative
--- NOTE | 2017-03-31 14:54 | OB.PROGRES ---
Objective - Labs CBC and BMP: 03/30/17 18:15 03/30/17 18:15 - Vital Signs Last Taken Vital Signs: Vital Signs - Last Taken Temperature 98.0 F 03/31/17 11:44 Pulse Rate 60 03/31/17 11:44 Respiratory Rate 16 03/31/17 11:44 Blood Pressure 119/91 03/31/17 11:44 Pulse Ox 97 03/31/17 11:44 Assessment and Plan - Assessment / Plan Additional Assessment/Plan Details: I spoke with the patient earlier in her room and the patient was pumping at that time and stated that she had slight abdominal discomfort but otherwise was doing well. She had just been up. I just went to see the patient again to write a note and the patient was soundly sleeping and I did not want to wake her since she has had a long night since her delivery late last evening. Davis catheter is still in place. Patient is tolerating a regular diet. Her GARMENT STEAMER will be discontinued and the patient will continue on oxycodone. She will also continue to receive Toradol every 6 hours IV. Last blood pressure did show diastolic of 91. Repeat after the patient awakens from her nap.
[2017-04-01] MEDS: oxyCODONE-ACETAMINOPHEN 5-325 TAB PO PRN ×5 (00:06→17:18)
[2017-04-01] MEDS ORDERED: IBUPROFEN 800 MG TABLET PO PRN (00:20)
[2017-04-01] MEDS: KETOROLAC 15 MG/1 ML VIAL IVP SCH (02:26)
[2017-04-01 04:51] LABS: Hematocrit [HCT] 34.3 % (37.0-47.0); Hemoglobin [HGB] 11.3 g/dL (12.0-16.0); MEAN CORPUSCULAR HEMOGLOBIN 31.4 PG (27-31); MEAN CORPUSCULAR HGB CONC 32.9 g/dL (33-37); MEAN CORPUSCULAR VOLUME 95.3 FL (81-99); MEAN PLATELET VOLUME 9.4 FL (7.4-12.2); RED BLOOD COUNT 3.6 10^6/uL (4.20-5.40)
[2017-04-01] MEDS: Prenatal Multivitamin Tab 1 TAB TAB PO SCH (08:28)
[2017-04-01] MEDS: DOCUSATE 100 MG CAPSULE PO SCH ×2 (08:28→20:45)
--- NOTE | 2017-04-01 08:32 | OB.PROGRES ---
Subjective Post Op Day: 2 Pain Management: PO Davis Catheter: No Flatus: Yes Diet: Regular [place] Feeding Method: / Bottle (The patient's baby is in the NICU and [facility]. The patient is pumping and the baby is receiving donor breast milk) Ambulating: Yes Objective - General General Appearance: POSITIVE: No Acute Distress, Cooperative - Cardiovacular Cardiovascular Exam: POSITIVE: RRR Edema: No Pedal Edema Extremities: Negative Wyatt's - Bilaterally - Respiratory Respiratory Exam: POSITIVE: Clear to Auscultation - Bilaterally - Abdomen Bowel Sounds: Present (All 4 quadrants) Abdominal Wound Assessment: Silverlone Dressing - Fundus/Lochia/Perineum Uterus Consistency: Firm Uterus Position: POSITIVE: Below Umbilicus Assesstment / Plan Assessment / Plan: Assessment: Postoperative day #2 status post repeat section urgently/ emergently for nonreassuring status at 33-1/2 weeks gestation on 2017 late in the evening. The patient has very mild postoperative anemia. Platelets are normal. Patient has been afebrile. Pulse normal. Blood pressure normal. Plan: Continue care today. The patient will shower today and then her incision will be looked at and Steri- Strips may be replaced if the Steri-Strips are moist. A new Silverlon dressing will be placed at that time. Ambulate 4 times today at least. Anticipate discharge home tomorrow. Patient would like to see her baby but the patient is only 30+ hours out from her repeat section with general endotracheal anesthesia. The patient currently agrees that discharge tomorrow would be good. The patient is tolerating oxycodone.
[2017-04-01] MEDS ORDERED: DOCUSATE 100 MG CAPSULE PO SCH (09:00)
[2017-04-01] MEDS ORDERED: Prenatal Multivitamin Tab 1 TAB TAB PO SCH (09:00)
[2017-04-01] MEDS: D5-LR 1,000 ML PRIMARY IV SCH ×2 (09:13→09:14)
[2017-04-01] MEDS: IBUPROFEN 800 MG TABLET PO PRN ×2 (11:29→18:47)
[2017-04-01] MEDS: oxyCODONE/APAP 7.5/325 Tab 1 TAB TAB PO PRN (20:43)
[2017-04-01 21:42] VITALS: O2SAT 97
[2017-04-01 21:59] VITALS: RESP 20
[2017-04-02] MEDS: oxyCODONE/APAP 7.5/325 Tab 1 TAB TAB PO PRN ×3 (01:08→11:40)
[2017-04-02] MEDS: IBUPROFEN 800 MG TABLET PO PRN (04:21)
[2017-04-02] MEDS: oxyCODONE-ACETAMINOPHEN 5-325 TAB PO PRN ×2 (07:12→11:27)
[2017-04-02 07:28] VITALS: BP 116/83; TEMP 98.6
--- NOTE | 2017-04-02 07:55 | OB.PROGRES ---
Subjective Post Op Day: 3 Pain Management: PO Davis Catheter: No Flatus: Yes Diet: Regular [place] Feeding Method: Exculsively (Patient is pumping. Patient' s baby is in the NICU in [place].) Ambulating: Yes Concerns / Additional Information: The patient had significant pain intermittently yesterday. Initially, the patient thought that when she took a shower she stretched to much. But then her pain remains significant. This was after the Toradol had been stopped. Last night after uterine massage, the patient stated her pain was 10 out of 10. The patient's oxycodone was increased to 7-1/2 mg/325 and since then the patient states that she has done that her. However, the patient is still requiring pain meds every 4 hours or so. The patient most likely desires to go home. The patient states that she will not go to [place] until tomorrow or the next day. She would like to go home and sleep in her own bed she says. Objective - General General Appearance: POSITIVE: No Acute Distress, Cooperative - Cardiovacular Cardiovascular Exam: POSITIVE: RRR Edema: +1 Pedal Edema (Trace edema bilaterally) Extremities: Negative Wyatt's - Bilaterally - Respiratory Respiratory Exam: POSITIVE: Clear to Auscultation - Bilaterally - Abdomen Bowel Sounds: Present Abdominal Wound Assessment: Silverlone Dressing (Currently, the patient is sitting. Her abdomen is soft.) Assesstment / Plan Assessment / Plan: Assessment: Postoperative day #3 status post repeat low transverse section urgently for nonreassuring status. The patient had some pain control issues yesterday. Improved this morning. Perhaps secondary to stopping the Toradol but also uterine massage since her uterus is U -3. This morning, her abdomen is soft and appropriately tender. The patient was sitting on the couch pumping and eating breakfast. She appeared comfortable this morning. Patient's vital signs are normal. The patient is not tachycardic. Afebrile. Plan: We'll most likely discharge patient home later today but I will reevaluate her a little later to determine this. Ibuprofen 800 mg 1 tablet by mouth 3 times a day with food or milk Colace 100 mg capsule 1 capsule by mouth daily to twice a day when necessary constipation Oxycodone/Tylenol 7.5/325 one tablet to 2 tablets by mouth every 6-8 hours when necessary when she is at home or in [place] in the NICU. The patient should not drive for at least 3 weeks. Her reaction time needs to be quick so that she can turn around quickly. This often takes at least 3 weeks if not longer. Usual postoperative precautions The patient should follow-up to see me next week or early the following week. Her Silverlon dressing should be removed 7 days postop. Steri-Strips should remain in place for 2 weeks. The patient will need to follow-up with me at 6-7 weeks also. The patient should return for fever, wound drainage, or any other problems. Additionally, if the patient Silverlon dressing starts to not stick well, the entire dressing should be removed.
[2017-04-02] MEDS: DOCUSATE 100 MG CAPSULE PO SCH (09:11)
[2017-04-02] MEDS: Prenatal Multivitamin Tab 1 TAB TAB PO SCH (09:12)
--- NOTE | 2017-04-02 14:32 | DCSUMMARY ---
Hospitalization Summary Admit Date: 03/30/17 Discharge Date: 04/02/17 Primary Diagnosis:: IUP 33-4/7 weeks gestation, vaginal bleeding Secondary Diagnosis:: Nonreassuring status Nonreassuring heart rate Severe abdominal pain Primary Surgery and Date: 03/30/2017. Repeat section Delivery Type: Hospital Course: The patient was admitted on 03/30/2017 for vaginal bleeding. Betamethasone was administered in hopes to improve lung maturity. Patient continued to have vaginal bleeding in the evening. The patient then had sudden onset of severe lower abdominal pain and there was nonreassuring status with the heart rate decreasing. A stat/urgent section was performed-repeat section. Postoperatively the patient recovered uneventfully but did have some increased lower abdominal pain on postoperative day #2 especially after the nurse massage the patient's fundus of her uterus. Oxycodone dose was increased to 7.5 mg and this helped. On postoperative day #3, the patient stated that her pain was much improved and the patient wanted to go home. Please see my operative report and postop notes. / Postop Complications: Please see above [place] Complications: The baby was transferred to the intensive care unit in [place], [place]. Exam - Vitals Vital Signs: Vital Signs Temperature 98.6 F Temperature Source Oral Pulse Rate [Apical] 67 Pulse Rate [Pulse Oximeter] 85 Pulse Rate 64 Respiratory Rate [incision] 16 Respiratory Rate 20 Blood Pressure [Right Arm] 116/83 Blood Pressure 114/63 Pulse Ox 97 Oxygen Flow Rate [incision] 1 Oxygen Flow Rate 1 Oxygen Delivery Method Room Air Height 5 ft 4 in Weight 150 lb
== END 2017-04-02 12:33 | disposition home or self-care (01) | DRG 766 ==
LOC: OBOP 14:14 → OBIP 14:14
PROVIDERS: ADMIT Obstetrics & Gynecology; ATTEND Obstetrics & Gynecology

== ENCOUNTER 2017-10-19 12:25 | Observation (INO) ==
--- NOTE | 2017-10-19 12:51 | PDOC ---
Gen Adult / Medical Screen HPI - General Chief Complaint: General Medical Stated Complaint: recheck Date Seen by Provider: 10/19/17 Time Seen by Provider: 12:50 Source: POSITIVE: Patient Exam Limitations: POSITIVE: No limitations Nurse's Notes Reviewed & Considered: Yes - Indicators Temperature Between 95 and 101 Degrees: Yes Respirations Between 12 and 20: Yes Blood Pressure Between 100-165 (sys) and 60-100 (esquivel): Yes Pulse Range Between 60-105 (100 for age > 60 years): Yes Severe Pain (Greater than 5/10 Reported): Yes Chest or Abdominal Pain: Yes Inability to Walk: No Pt Reports Active High Risk Cond. (TB/Hepatitis/HIV/Chemo): No Abnormal Mental Status: No - History of Present Illness Initial Comments: This is a well-developed, well-nourished, 27-year-old female, complaining of worsening right lower quadrant abdominal pain. Patient was seen yesterday in the emergency room with right lower quadrant abdominal pain. She had a slightly elevated white count and normal CT and ultrasound findings with no evidence of appendicitis or torsed ovary. On vaginal exam she was positive for Shani but it was felt that this is likely not responsible for her abdominal pain. She was told to return to the emergency room today for reevaluation. She states that her pain has gotten worse and she rates it as a 10 over 10 although I do not appreciate pain cues and she has stable vital signs. She states she is having nausea but no vomiting, no diarrhea, she denies any chest pain or shortness of breath, no headache, no sore throat, no hematuria dysuria. Body Location Affected: REPORTS: Abdomen Timing: REPORTS: Getting Worse Duration: >24 hours Recent Care Received: REPORTS: Recently Seen, Treated by MD Any Prior Injuries Related to Current Complaint?: No - Patient Home Medications Home Medications: Home Medications norgestimate 0.25 mg-ethinyl estradiol 35 mcg tablet 1 tab PO QDAY #28 tab 07/30 Doxycycline Hyclate [Vibramycin] 100 mg PO BID #14 cap 10/19/17 - Patient Allergies Allergies/Adverse Reactions: Allergies 3 Allergy/AdvReac Type Severity Reaction Status Date / Time Latex, Natural Rubber Allergy RASH Verified 10/19/17 13:43 Past Medical History - heen HEENT History: Denies History Cardiovascular History: Denies History Respiratory History: Denies History Gastrointestinal History: Denies History Genitourinary History: Denies History Additional Genitourinary History: H/O PID Endocrine History: Denies History Musculoskeletal History: Denies History Prosthesis or Implant: No Neurological History: Migraines Blood Disorders: Denies History Psychiatric History: Denies History History of Sexually Transmitted Diseases: No Cancer History: Denies History History of MDRO: No History of Other Communicable Diseases: Yes (Varicella) Alcohol Use: Rarely In the Past 12 Months, Have Used or Abuse Any Substance: None Previous Surgical History: Yes Type / Date of Surgery: D/C in 2008 TO REPAIR "HOLE IN UTERUS". CSECTION X 2. TUBAL LIGATION Anesthesia Reactions: No Malignant Hyperthermia: No Significant Family History: Diabetes, Hypertension ROS - Limitations ROS Limitations: No Limitations Constitution: REPORTS: Denies Symptoms Cardiovascular: REPORTS: Denies Cardiac Symptoms Respiratory: REPORTS: Denies Resp Symptoms Neurological: REPORTS: Denies Neuro Symptoms Gastrointestinal: REPORTS: Abdominal Pain, Nausea Endocrine: REPORTS: Denies Symptoms Musculoskeletal: REPORTS: Denies MS Symptoms Genitourinary: REPORTS: Denies Symptoms Eyes: REPORTS: Denies Symptoms ENT: REPORTS: Denies Symptoms Skin: REPORTS: Denies Skin Symptoms Lympathic: REPORTS: Denies Lympathic Symptoms Immunologic: POSITIVE: Denies Symptoms Psychiatric: POSITIVE: Denies Psych Symptoms Gen Adult/Medical Screen Exam - General Appearance General Appearance: POSITIVE: Alert, Cooperative, No Evidence of Trauma, Moderate Distress - HEENT HEENT: POSITIVE: Head Inspection Nml, Eyes Inspection Nml, Ears Inspection Nml, Nose Inspection Nml, Oral/Dental Inspect. Nml, Pharynx Inspect. Nml, PERRL, EOMI - Pupils Pupil Size: 5 mm: Bilateral - Neck Neck: POSITIVE: Normal Inspection, Thyroid Normal - Respiratory Respiratory: POSITIVE: No Respiratory Distress, Breath Sounds Normal, Chest Non- Tender - Cardiovascular Cardiovascular: POSITIVE: Regular Rate & Rhythm, No Murmur, No Gallop, PMI Normal Peripheral Pulses: Radial (R): 4+ - Abdomen Abdomen: Soft: (All Quadrants), Normal Bowel Sounds: (All Quadrants), Denies Tenderness: (LUQ), (RUQ), No Splenomegaly: (All Quadrants), No Hepatomegaly: ( All Quadrants), No Guarding: (LUQ), (RUQ), No Rebound: (LLQ), (LUQ), (RUQ), No Palpable Pulse: (All Quadrants), No Palpabale Mass: (All Quadrants), No Distention: (All Quadrants), No Rigidity: (All Quadrants), Tenderness Noted: ( RLQ), (LLQ), Guarding: (RLQ), (LLQ), Rebound: (RLQ) Additional Abdominal Details: Patient has tenderness to manual palpation of her abdomen but no evidence of tenderness elicited with palpation using a stethoscope. - Back Back: POSITIVE: Normal Inspection - Neurological / Psychological Mental Status: POSITIVE: Mood Normal, Affect Normal - Skin Skin: POSITIVE: Normal Color, Warm, Dry, No Rash - Extremities Extremity: Non-Tender: (All Extremities), Normal ROM: (All Extremities), Normal Inspection: (All Extremities), Pelvis Stable: (All Extremities) Procedures - Laceration/Wound Repair Did patient have a laceration repair: No Gen Adlt/Medical Scrn Progress - Results Reviewed by me Xrays/CTs/US Reviewed by me: Yes Discussed with Radiologist: Yes Lab Results Reviewed by Me: Yes CBC and BMP: 10/19/17 13:20 10/19/17 13:20 Lab Results:: Laboratory Results 3 10/19/17 10/19/17 10/19/17 13:15 13:20 13:20 WBC 7.96 RBC 4.51 Hgb 14.2 Hct 40.6 MCV 90.0 MCH 31.5 H MCHC 35.0 RDW Std Deviation 45.4 RDW Coeff of Dain 14.1 Plt Count 244 MPV 10.1 Immature Gran % (Auto) 0.4 Neut % (Auto) 50.6 Lymph % (Auto) 37.7 Clay % (Auto) 7.4 Eos % (Auto) 3.4 Baso % (Auto) 0.5 Immature Gran # (Auto) 0.03 Neut # (Auto) 4.03 Lymph # (Auto) 3.00 Clay # (Auto) 0.59 Eos # (Auto) 0.27 Baso # (Auto) 0.04 WBC Morphology Comment Normal morphology Plt Morphology Comment Normal morphology RBC Morph Comment Normal morphology Sodium 138 Potassium 3.7 L Chloride 111 Carbon Dioxide 23 Anion Gap 4 L BUN 9 Creatinine 0.6 Estimated GFR > 60 BUN/Creatinine Ratio 15.00 Glucose 77 L Calculated Osmolality 283.0 Calcium 8.9 Magnesium 1.7 Total Bilirubin 0.5 D AST 23 ALT 26 Alkaline Phosphatase 55 C-Reactive Protein 0.6 Total Protein 6.5 Albumin 3.6 Globulin 2.9 Albumin/Globulin Ratio 1.20 L Amylase 50 Lipase 60 Serum HCG, Qual Ur Collection Type Clean catch urine Urine Color Yellow Urine Clarity Clear Urine pH 7.0 Ur Specific [place] 1.010 Urine Protein Negative Urine Glucose (UA) Negative Urine Ketones Negative Urine Occult Blood Trace-intact H Urine Nitrate Negative Urine Bilirubin Negative Urine Urobilinogen 0.2 Ur Leukocyte Esterase Negative Urine RBC None Urine WBC None Ur Squamous Epith Cells Many Ur Renal Epithelial Cell None Urine Crystals None Urine Bacteria None Urine Casts None Urine Mucus None Urine Trichomonas None Urine Yeast None Ur Culture Indicated? Culture not set 3 10/19/17 13:20 WBC RBC Hgb Hct MCV MCH MCHC RDW Std Deviation RDW Coeff of Dain Plt Count MPV Immature Gran % (Auto) Neut % (Auto) Lymph % (Auto) Clay % (Auto) Eos % (Auto) Baso % (Auto) Immature Gran # (Auto) Neut # (Auto) Lymph # (Auto) Clay # (Auto) Eos # (Auto) Baso # (Auto) WBC Morphology Comment Plt Morphology Comment RBC Morph Comment Sodium Potassium Chloride Carbon Dioxide Anion Gap BUN Creatinine Estimated GFR BUN/Creatinine Ratio Glucose Calculated Osmolality Calcium Magnesium Total Bilirubin AST ALT Alkaline Phosphatase C-Reactive Protein Total Protein Albumin Globulin Albumin/Globulin Ratio Amylase Lipase Serum HCG, Qual Negative Ur Collection Type Urine Color Urine Clarity Urine pH Ur Specific [place] Urine Protein Urine Glucose (UA) Urine Ketones Urine Occult Blood Urine Nitrate Urine Bilirubin Urine Urobilinogen Ur Leukocyte Esterase Urine RBC Urine WBC Ur Squamous Epith Cells Ur Renal Epithelial Cell Urine Crystals Urine Bacteria Urine Casts Urine Mucus Urine Trichomonas Urine Yeast Ur Culture Indicated? - Patient's Progress Pain Medication Addressed: POSITIVE: Yes Status: POSITIVE: Improved MDM / ED Course: Patient was evaluated, an IV started, blood drawn and sent to the lab for studies, CT and ultrasound of her abdomen were once again obtained. Patient received normal saline, Toradol, Dilaudid, and Zofran. Findings: CBC shows a normal white count of 7.96. CMP shows potassium of 3.7 anion gap of 4 and a glucose of 77. Amylase is normal at 50, lipase normal at 60. Beta hCG is negative. Urinalysis shows trace of microscopic blood. Ultrasound of her abdomen shows no acute findings present. CT scan of her abdomen performed with IV, rectal, and oral contrast shows no acute findings. Assessment: Abdominal pain of unknown etiology. I have contacted the on-call surgeon, Dr. Kate, who has come to the emergency room and evaluated the patient. He will be available for consultation. I have also contacted the hospitalist who is admitting this patient for pain control and serial abdominal exams. - Consult Consulting MD will see pt:: POSITIVE: [facility] [place] Admit Counseled: POSITIVE: Patient, RE: Lab Results, RE: Radiology Results, RE: DX, RE : Need for F/U Patient Care Time - Estimated PCT Patient Care Time (In Minutes): 60 Vital Signs - VS Reviewed Vital Signs Reviewed: Yes Discharge Clinical Impression: Abdominal pain Discharge Disposition: Admit to Observation Condition: Stable
[2017-10-19] MEDS ORDERED: KETOROLAC 15 MG/1 ML VIAL IVP ONE (13:08)
[2017-10-19] MEDS ORDERED: Sodium Chloride 0.9% 1,000 ML PRIMARY IV ONE (13:08)
[2017-10-19] MEDS ORDERED: HYDROmorphone 2 MG/1 ML IVP ONE ×2 (13:08→15:12)
[2017-10-19] MEDS ORDERED: ONDANSETRON 4 MG/2 ML VIAL IVP ONE ×2 (13:08→13:59)
[2017-10-19 13:44] LABS: BASOPHILS # (AUTO) 0.04 10*3/UL; BASOPHILS % (AUTO) 0.5 % (0-1); EOSINOPHILS # (AUTO) 0.27 10*3/UL; EOSINOPHILS % (AUTO) 3.4 % (0-8); Hematocrit [HCT] 40.6 % (37.0-47.0); Hemoglobin [HGB] 14.2 g/dL (12.0-16.0); MEAN CORPUSCULAR HEMOGLOBIN 31.5 PG (27-31); MEAN PLATELET VOLUME 10.1 FL (7.4-12.2); MONOCYTES # (AUTO) 0.59 10*3/UL (0.3-0.8); MONOCYTES % (AUTO) 7.4 % (5-15); NEUTROPHILS # (AUTO) 4.03 10*3/UL; NEUTROPHILS % (AUTO) 50.6 % (50-80); RED BLOOD COUNT 4.51 10^6/uL (4.20-5.40)
[2017-10-19 13:45] LABS: PLATELET MORPHOLOGY COMMENT NORMAL MORPHOLOGY (NORM); RBC MORPHOLOGY COMMENT NORMAL MORPHOLOGY (NORM); WBC MORPHOLOGY COMMENT NORMAL MORPHOLOGY (NORM)
[2017-10-19 13:45] LABS: BILIRUBIN,URINE NEGATIVE (NEG); CLARITY,URINE CLEAR (CLEAR); COLOR,URINE YELLOW (Y); GLUCOSE, URINE (UA) NEGATIVE (NEG); OCCULT BLOOD,URINE Trace-intact (NEG); PROTEIN,URINE NEGATIVE (NEG); UROBILINOGEN,URINE 0.2 EU/dL (0.2)
[2017-10-19 13:53] LABS: URINE SAMPLE TYPE CLEAN CATCH URINE
[2017-10-19 13:54] LABS: SQUAMOUS EPITHELIAL CELL,UR MANY
[2017-10-19 13:55] LABS: BLOOD UREA NITROGEN 9 mg/dL (7-22); LIPASE 60 IU/L (23-300); SERUM ALBUMIN 3.6 g/dL (3.5-4.8)
--- NOTE | 2017-10-19 15:01 | DI ---
PELVIC ULTRASOUND, 10/19/2017 1:05 PM Clinical History: Worsening right lower quadrant pain. Previous Exam: 10/19/2017, at 0054 hours. Technique: Transabdominal and transvaginal scans are performed. The uterus measures approximately 40 x 70 x 80 mm and has a normal appearance. The central uterine st ripe measures 5 mm. The ovaries are normal and demonstrate vascular flow. There are no fluid collecti ons or masses. Reading: Normal pelvic ultrasound. There has been no significant interval change.
[2017-10-19] MEDS ORDERED: AZITHROMYCIN 250 MG TABLET PO ONE (16:57)
[2017-10-19] MEDS ORDERED: LIDOCAINE 1% IM ONE (16:57)
[2017-10-19] MEDS ORDERED: CEFTRIAXONE IM ONE (16:57)
[2017-10-19] MEDS ORDERED: DOXYCYCLINE HYCLATE 100 MG CAPSULE PO ONE (17:00)
[2017-10-19] MEDS ORDERED: metroNIDAZOLE Tab 500 MG TAB PO ONE (17:01)
--- NOTE | 2017-10-19 17:44 | DI ---
CT ABDOMEN SCAN WITH IV CONTRAST, 10/19/2017 1:05 PM : Clinical History: Progressively worsening right lower quadrant pain. Previous Exam: 10/18/2017. Scans are performed from the lower lung bases through the liver and kidneys with IV contrast. 95 mL o f Isovue 300 was injected IV. Volumen oral enterography contrast and water rectal contrast were admin istered. The lung bases are clear. The liver is normal. The gallbladder is grossly normal. There is no abnorma lity of the spleen, pancreas, and adrenal glands. Both kidneys are normal in size, shape, position an d contour. There is no hydronephrosis or hydroureter. No renal or ureteral calculi are present. There are no abnormal retrocrural or periaortic nodes. No ascites is present. READING: Normal CT abdomen scan. There has been no significant interval change. CT PELVIS SCAN WITH IV CONTRAST, 10/19/2017 1:05 PM: Clinical History: See above. Previous Exam: 10/18/2017. Scans are performed from just superior to the umbilicus to the symphysis pubis with IV contrast. This is the same bolus of contrast used for the CT scans of the abdomen. Scans through the lower abdomen and pelvis show no masses, enhancing lesions, or abnormal fluid colle ctions. There is no adenopathy. The appendix is normal. Review of the previous CT scan performed on in retrospect does demonstrate a normal appendix. The small bowel, terminal ileum, and ileoce rowdy valve are normal. The colon is also normal. There are no hernias. The uterus and both ovaries are normal. READIN. Normal CT scan of the pelvis with IV contrast. There has been no significant interval change. 2. The appendix is normal. Review of the prior study shows that the appendix was visible and also wa s normal. 3. There is no evidence of a hernia and specifically no evidence of a spigelian hernia.
[2017-10-19] MEDS ORDERED: CefOXitin Inj 1 GM in Sodium Chloride 0.9% 100 ML IV ONE (17:47)
[2017-10-19] MEDS ORDERED: CALCIUM CARBONATE 500 MG (TUMS) CHEWABLE TABLET PO PRN (18:41)
[2017-10-19] MEDS ORDERED: KETOROLAC 15 MG/1 ML VIAL IVP PRN (18:41)
[2017-10-19] MEDS ORDERED: D5-1/2NS + 20mEq KCL 1,000 ML PRIMARY IV SCH (18:41)
[2017-10-19] MEDS ORDERED: DOCUSATE 100 MG CAPSULE PO PRN (18:41)
[2017-10-19] MEDS ORDERED: ONDANSETRON 4 MG/2 ML VIAL IVP PRN (18:41)
[2017-10-19] MEDS ORDERED: ACETAMINOPHEN 325 MG TABLET PO PRN (18:41)
[2017-10-19] MEDS ORDERED: LIDOCAINE W/ SODIUM BICARB 0.5 ML SYR SUBD PRN (18:41)
--- NOTE | 2017-10-19 19:08 | CONSULT ---
Consult Note - Consult Consult Date: 10/19/17 Reason for Consult: PreOp Consulation : General Surgery Requesting Physician: Dr. Fleming Primary Care Provider: Armand Cevallos MD - History of Present Illness History of Present Illness: This is 27-year-old female who now has a 3 day history of right lower quadrant abdominal pain. She rates the pain as 10 out of 10 and is progressively becoming more severe.. She states it feels like something is stabbing her in a right lower quadrant. She states that she felt cold but has not recorded his temperature. She is seen in the emergency room yesterday which had a slightly elevated white count but a normal C-reactive protein. That point a CT scan was done which was read as normal except that they could not see her appendix. This CT scan was over read and was found to have what appeared to be a normal appendix. Patient came back in today for follow-up having more severe pain. This time her white count was normal. There is no left shift. Laboratory values were unremarkable. Repeat CT scan showed a normal-appearing appendix. There is no evidence of colitis. There is no evidence of thickened bowel or any other inflammatory processes going on. Patient had 2 pelvic ultrasounds which showed normal ovaries right and left with flow in both of them. Review of Systems - Constitutional Constitutional: REPORTS: Negative System Review, General Health Good - Integumentary Integumentary: REPORTS: Negative System Review - Ear/Nose Exam Ear/Nose Exam: REPORTS: Negative System Review - Mouth/Throat Mouth/Throat Exam: REPORTS: Negative System Review - Cardiovascular Cardiovascular: REPORTS: Negative System Review - Gastrointestinal Gastrointestinal / Abdominal: REPORTS: Negative System Review - Genitourinary Genitourinary: REPORTS: Negative System Review - Gynecological Gynecological: REPORTS: Negative System Review (Patient is in mid cycle) - Musculoskeletal Musculoskeletal: REPORTS: Negative System Review - Hematlogic / Lymphatic Hematologic / Lymphatic: REPORTS: Negative System Review - Neurological Neurologic: REPORTS: Negative System Review - Psychiatric Psychiatric: REPORTS: Negative System Review Past Medical History Tobacco Use: Current Every Day Smoker In the Past 12 Months, Have Used or Abuse Any of the Following Substance: None Medication / Allergies Home Medications: Home Medications 3 Medication Instructions Recorded Confirmed Type norgestimate 0.25 mg-ethinyl 1 tab PO QDAY #28 tab 07/30/17 10/19/17 Rx estradiol 35 mcg tablet Hydrocodone Bit/Acetaminophen 1 tab PO Q4H PRN 10/19/17 10/19/17 History [Hydrocodon-Acetaminophen 5-325] Allergies/Adverse Reactions: Allergies 3 Allergy/AdvReac Type Severity Reaction Status Date / Time Latex, Natural Rubber Allergy RASH Verified 10/19/17 13:43 Results - Labs CBC and BMP: 10/19/17 13:20 10/19/17 13:20 Exam - Vitals Vital Signs: Vital Signs Temperature 98.2 F Temperature Source Temporal Artery Scan Pulse Rate [Pulse Oximeter] 90 Respiratory Rate 18 Blood Pressure [Left Arm] 136/80 Pulse Ox 100 Oxygen Delivery Method Room Air Height 5 ft 4 in Weight 130 lb - General General Appearance: No Acute Distress - Head Head Exam: Normocephalic - Eye Eye Exam: POSITIVE: PERRL, EOMI - ENT ENT Exam: POSITIVE: Normal Exam - Neck Neck Exam: Normal Inspection - Respiratory Respiratory Exam: POSITIVE: Clear to Auscultation - Bilaterally, Breathing Non Labored - Cardiovascular Cardiovascular Exam: POSITIVE: RRR, No Murmur, No Clicks, No Gallops, No Rubs, PMI Non-Displaced - GI/Abdominal GI/Abdominal Exam: POSITIVE: Normal Bowel Sounds, Soft Additional GI/Abdominal Exam Details: Patient's abdomen is soft there is tenderness to the right lower quadrant more McBurney's point. There is no rebound or rigidity noted. - External Exam: POSITIVE: Deferred - Extremities Extremities Exam: POSITIVE: Full ROM, Normal Capillary Refill, No Clubbing Present, No Edema Present - Neurological Neurological Exam: POSITIVE: Oriented x 3, Reflexes Normal, Normal Gait, CN II- XII Intact Assessment and Plan - Patient Problems (1) Right lower quadrant abdominal pain Current Visit: Yes Status: Acute Code(s): R10.31 - Right lower quadrant pain - Assessment / Plan Additional Assessment/Plan Details: At this point do not think the patient has acute surgical emergency. Given the fact that she's had normal CT scans and 2 separate occasions and makes a diagnosis appendicitis less likely. Since patient is midcycle this could be mittelschmerz pain. Also could be a torsed Tubular cyst. Inflammatory bowel still cannot be excluded but unlikely since patient does not have diarrhea or hematochezia . I do think the patient needs to be and for pain management. If this is an early appendicitis would like to treat her with antibiotics second-generation cephalosporin. The patient be admitted to the hospitalist service
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
[2017-10-19] MEDS ORDERED: CefOXitin Inj 2 GM in Sodium Chloride 0.9% 100 ML IV SCH (20:00)
[2017-10-19 20:13] VITALS: BP 157/97; RESP 16; TEMP 97.6; O2SAT 96
--- NOTE | 2017-10-19 20:38 | DCSUMMARY ---
Hospitalization Summary Admit Date: 10/19/2017 Discharge Date: 10/19/17 Primary Diagnosis:: abdominal pain, unclear etiology Hospital Course: Please see history and physical exam dictated same day of this discharge for details of presentation. In short, the patient left AGAINST MEDICAL ADVICE. She felt that a plan without IV narcotics was not a plan that was worth staying in the hospital for. Exam - Vitals Vital Signs: Vital Signs Temperature 97.6 F Temperature Source Oral Pulse Rate [Pulse Oximeter] 58 Respiratory Rate 16 Blood Pressure [Left Arm] 157/97 Pulse Ox 96 Oxygen Delivery Method Room Air Height 5 ft 4 in Weight 130 lb Examination is described in history and physical exam for this admission. Data Peritnent Studies: Laboratory Results 10/19/17 10/19/17 10/19/17 Range/Units 13:15 13:20 13:20 WBC 7.96 (4.8-10.8) 10^3/uL RBC 4.51 (4.20-5.40) 10^6/uL Hgb 14.2 (12.0-16.0) g/dL Hct 40.6 (37.0-47.0) % MCV 90.0 (81-99) FL MCH 31.5 H (27-31) PG MCHC 35.0 (33-37) g/dL RDW Std Deviation 45.4 (39-50) fL RDW Coeff of Dain 14.1 (11.5-14.5) % Plt Count 244 (140-350) 10*3/uL MPV 10.1 (7.4-12.2) FL Immature Gran % (Auto) 0.4 (0-5) % Neut % (Auto) 50.6 (50-80) % Lymph % (Auto) 37.7 (10-50) % [place] % (Auto) 7.4 (5-15) % Eos % (Auto) 3.4 (0-8) % Baso % (Auto) 0.5 (0-1) % Immature Gran # (Auto) 0.03 10*3/UL Neut # (Auto) 4.03 10*3/UL Lymph # (Auto) 3.00 10*3/uL [place] # (Auto) 0.59 (0.3-0.8) 10*3/UL Eos # (Auto) 0.27 10*3/UL Baso # (Auto) 0.04 10*3/UL WBC Morphology Comment Normal morphology (NORM) Plt Morphology Comment Normal morphology (NORM) RBC Morph Comment Normal morphology (NORM) Sodium 138 (135-145) meq/L Potassium 3.7 L (3.8-5.2) meq/L Chloride 111 (98-112) meq/L Carbon Dioxide 23 (23-33) meq/L Anion Gap 4 L (5-20) BUN 9 (7-22) mg/dL Creatinine 0.6 (0.50-1.20) mg/dL Estimated GFR > 60 (>60 ml/min/1.73m(2)) BUN/Creatinine Ratio 15.00 (6-20) Glucose 77 L (78-110) mg/dL Calculated Osmolality 283.0 (267-292) mOsm/kg Calcium 8.9 (8.7-10.7) mg/dL Magnesium 1.7 (1.6-2.4) mg/dL Total Bilirubin 0.5 D (0.3-1.2) mg/dL AST 23 (8-39) IU/L ALT 26 (9-52) IU/L Alkaline Phosphatase 55 (38-126) IU/L C-Reactive Protein 0.6 (0.0-0.9) mg/dL Total Protein 6.5 (6.1-8.0) g/dL Albumin 3.6 (3.5-4.8) g/dL Globulin 2.9 (2.50-4.10) g/dL Albumin/Globulin Ratio 1.20 L (1.3-2.0) mg/g Amylase 50 (30-110) U/L Lipase 60 (23-300) IU/L Serum HCG, Qual Ur Collection Type Clean catch urine Urine Color Yellow (Y) Urine Clarity Clear (CLEAR) Urine pH 7.0 (5.0-8.5) Ur Specific [place] 1.010 (1.005-1.030) Urine Protein Negative (NEG) mg/dl Urine Glucose (UA) Negative (NEG) mg/dL Urine Ketones Negative (NEG) Urine Occult Blood Trace-intact H (NEG) Urine Nitrate Negative (NEG) Urine Bilirubin Negative (NEG) Urine Urobilinogen 0.2 (0.2) EU/dL Ur Leukocyte Esterase Negative (NEG) Urine RBC None (NONE) /hpf Urine WBC None (NONE) Ur Squamous Epith Cells Many (NONE) Ur Renal Epithelial Cell None (NONE) Urine Crystals None Urine Bacteria None (NONE) Urine Casts None (NONE) Urine Mucus None (NONE) Urine Trichomonas None (NONE) Urine Yeast None (NONE) Ur Culture Indicated? Culture not set 10/19/17 Range/Units 13:20 WBC (4.8-10.8) 10^3/uL RBC (4.20-5.40) 10^6/uL Hgb (12.0-16.0) g/dL Hct (37.0-47.0) % MCV (81-99) FL MCH (27-31) PG MCHC (33-37) g/dL RDW Std Deviation (39-50) fL RDW Coeff of Dain (11.5-14.5) % Plt Count (140-350) 10*3/uL MPV (7.4-12.2) FL Immature Gran % (Auto) (0-5) % Neut % (Auto) (50-80) % Lymph % (Auto) (10-50) % [place] % (Auto) (5-15) % Eos % (Auto) (0-8) % Baso % (Auto) (0-1) % Immature Gran # (Auto) 10*3/UL Neut # (Auto) 10*3/UL Lymph # (Auto) 10*3/uL [place] # (Auto) (0.3-0.8) 10*3/UL Eos # (Auto) 10*3/UL Baso # (Auto) 10*3/UL WBC Morphology Comment (NORM) Plt Morphology Comment (NORM) RBC Morph Comment (NORM) Sodium (135-145) meq/L Potassium (3.8-5.2) meq/L Chloride (98-112) meq/L Carbon Dioxide (23-33) meq/L Anion Gap (5-20) BUN (7-22) mg/dL Creatinine (0.50-1.20) mg/dL Estimated GFR (>60 ml/min/1.73m(2)) BUN/Creatinine Ratio (6-20) Glucose (78-110) mg/dL Calculated Osmolality (267-292) mOsm/kg Calcium (8.7-10.7) mg/dL Magnesium (1.6-2.4) mg/dL Total Bilirubin (0.3-1.2) mg/dL AST (8-39) IU/L ALT (9-52) IU/L Alkaline Phosphatase (38-126) IU/L C-Reactive Protein (0.0-0.9) mg/dL Total Protein (6.1-8.0) g/dL Albumin (3.5-4.8) g/dL Globulin (2.50-4.10) g/dL Albumin/Globulin Ratio (1.3-2.0) mg/g Amylase (30-110) U/L Lipase (23-300) IU/L Serum HCG, Qual Negative Ur Collection Type Urine Color (Y) Urine Clarity (CLEAR) Urine pH (5.0-8.5) Ur Specific [place] (1.005-1.030) Urine Protein (NEG) mg/dl Urine Glucose (UA) (NEG) mg/dL Urine Ketones (NEG) Urine Occult Blood (NEG) Urine Nitrate (NEG) Urine Bilirubin (NEG) Urine Urobilinogen (0.2) EU/dL Ur Leukocyte Esterase (NEG) Urine RBC (NONE) /hpf Urine WBC (NONE) Ur Squamous Epith Cells (NONE) Ur Renal Epithelial Cell (NONE) Urine Crystals Urine Bacteria (NONE) Urine Casts (NONE) Urine Mucus (NONE) Urine Trichomonas (NONE) Urine Yeast (NONE) Ur Culture Indicated? Procedures: CT scan reports can be reviewed in the [facility] system at [facility]. Patient Problems - Patient Problem List (1) Right lower quadrant abdominal pain Current Visit: Yes Status: Acute Comment: Question possible interstitial cystitis. The patient left AGAINST MEDICAL ADVICE before we could have any further discussion regarding this. Doubt pelvic inflammatory disease, but antibiotics prescribed empirically in case this is the situation. Code(s): R10.31 - Right lower quadrant pain Category: Medical (2) Drug-seeking behavior Current Visit: Yes Status: Acute Code(s): Z76.5 - Malingerer [conscious simulation] Category: Medical (3) Marijuana abuse Current Visit: Yes Status: Acute Comment: I told the patient to stop marijuana. Code(s): F12.10 - Cannabis abuse, uncomplicated Category: Medical (4) Tobacco abuse Current Visit: No Status: Acute Comment: I encouraged patient to quit smoking. I told her she could not smoke in the hospital. Code(s): Z72.0 - Tobacco use Category: Medical
[2017-10-20] MEDS ORDERED: PANTOPRAZOLE IV 40 MG VIAL IVP SCH (09:00)
== END 2017-10-19 20:02 | disposition left against medical advice (07) ==
LOC: ER 12:25 → MED/SURG 12:25
PROVIDERS: ADMIT Family Medicine; ATTEND Family Medicine